=== PATIENT | female | born 1955 | race Caucasian/White ===

== ENCOUNTER 2016-06-27 09:48 | Outpatient (CLI) | payer OTHER | END 2016-06-27 09:50 | LOC: LAB 09:48 | PROVIDERS: ATTEND Family Medicine | DX: E78.2 Mixed hyperlipidemia (principal) | CPT/HCPCS: 36415; 80061 ==

== ENCOUNTER 2017-02-01 08:39 | Outpatient (CLI) | payer OTHER ==
[2017-02-01 09:02] LABS: BASOPHILS % 0.7 (0.0-1.5); EOSINOPHILS % 4.2 % (0.0-6.8); MEAN CORPUSCULAR HEMOGLOBIN 29.6 pg (28.0-34.0); MEAN CORPUSCULAR VOLUME 88.4 fl (80.0-100.0); MONOCYTES % 3.9 % (0.0-11.0)
[2017-02-01 10:22] LABS: eGFR (African) > 60; eGFR (Non-African) > 60
== END 2017-02-01 08:45 ==
LOC: LAB 08:39
PROVIDERS: ATTEND Family Medicine
DX: Z00.00 Encounter for general adult medical examination without abnormal findings (principal)
CPT/HCPCS: 36415; 80053; 80061; 85025

== ENCOUNTER 2017-10-17 10:20 | Outpatient (CLI) | payer OTHER ==
--- NOTE | 2017-10-17 11:33 | Diagnostic Imaging Report ---
DIVINE CRUZ [facility] [address] [facility] [address] [address] Report Submission Date: Oct 17, 2017 11:07:18 AM CDT Patient Study Name: BELLE VILLANUEVA Date: Oct 17, 2017 10:23:35 AM CDT Modality Type: DX Gender: F Description: LOWER EXTREMITY : 59 Institution: [facility] Physician: DIVINE CRUZ Examination: Plain film left foot History: PAIN IN 5TH DIGIT (Hx) Findings: 3 views of the left foot demonstrates mild articular degenerative spurring. No fracture or dislocation. Specifically 5th digit without acute cortical abnormality. Axial spur. No soft tissue swelling. No joint effusion. Impression: Degenerative changes without fracture. Electronically signed on Oct 17, 2017 11:07:18 AM CDT by: Richard REYES
== END 2017-10-17 10:21 ==
LOC: RAD 10:20
PROVIDERS: ATTEND Nurse Practitioner Family
DX: M79.675 Pain in left toe(s) (principal)
CPT/HCPCS: 73630

== ENCOUNTER 2018-02-26 07:41 | Day surgery (SDC) | payer OTHER ==
[2018-02-26] MEDS ORDERED: LACTATED RINGERS 1,000 ML IV.SOLN IV ONE (08:48)
[2018-02-26] MEDS ORDERED: PROPOFOL 200 MG/20 ML VIAL IV ONE (08:48)
--- NOTE | 2018-02-26 12:57 | GI Report ---
REFERRING PHYSICIAN: Dr. Geraldine Pereira WEB SUPPORT ENGINEER: Matt Banks MD PROCEDURE MEDICATION: Propofol as per anesthesia. INDICATIONS: This 62-year-old woman is referred for a screening. A second-degree relative, grandparent, has a history of colon cancer. Patient comes for an evaluation. She denies any change in bowel habits or obvious bleeding. She has had C- sections and an open cholecystectomy as far as abdominal surgeries. She is 5 feet 4 inches and her weight is 190 and she carries that centrally. PROCEDURE PERFORMED: Colonoscopy. PROCEDURE: An Olympus video colonoscope was advanced to the rectum and slowly advanced all the way to the cecum. The appendiceal orifice and ileocecal valve were normal. On slow withdrawal, the cecum, ascending colon with no obvious intraluminal lesions noted. The transverse colon, again, no obvious intraluminal lesions noted. The descending colon with a few scattered diverticula. No obvious intraluminal lesions noted. The sigmoid had some redundancy and a few diverticula. Retroflexion of the rectum was normal. Patient tolerated the procedure well. FINDINGS: 1. Mild diverticular disease of the sigmoid and distal descending colon. 2. No obvious intraluminal lesions noted. RECOMMENDATIONS: 1. A high-fiber diet. 2. Consider re-looking at her colon in 7 to 10 years since she has a second- degree relative with colon cancer, or unless clinically indicated to do sooner. cc: Dr. Geraldine REYES
== END 2018-02-26 10:22 ==
LOC: OPSURG 07:41
PROVIDERS: ATTEND Internal Medicine Gastroenterology
DX: Z12.11 Encounter for screening for malignant neoplasm of colon (principal); K57.30 Diverticulosis of large intestine without perforation or abscess without bleeding; Z80.0 Family history of malignant neoplasm of digestive organs
CPT/HCPCS: 45378; J2704; J7120; S1016

== ENCOUNTER 2018-11-15 15:24 | Outpatient (CLI) | payer OTHER ==
--- NOTE | 2018-12-07 16:00 | Diagnostic Imaging Report ---
SHERLEY JONES [facility] [address] [facility] [address] Report Submission Date: Nov 15, 2018 3:53:11 PM CDT Patient Study Name: BELLE VILLANUEVA Date: Nov 15, 2018 3:24:47 PM CDT Modality Type: DX Gender: F Description: KNEE 1 OR 2 VIEWS : 59 Institution: [facility] Physician: SHERLEY JONES Exam: Right knee. History: Pain. AP and lateral view of the right knee are submitted. No signs of fracture or dislocation is seen. No bony erosions are seen. No soft tissue abnormalities identified. Impression: No bony abnormality. Electronically signed on Nov 15, 2018 3:53:11 PM CDT by: Roger REYES
== END 2018-11-15 15:35 ==
LOC: RAD 15:24
PROVIDERS: ATTEND Family Medicine
DX: M25.561 Pain in right knee (principal)
CPT/HCPCS: 73562